=== PATIENT | female | born 1950 | race African-American/Black ===

== ENCOUNTER 2016-09-21 19:40 | Emergency (ER) | payer MEDICARE, MEDICAID ==
[2016-09-21] MEDS ORDERED: Ketorolac Tromethamine 60 MG/2 ML VIAL ONE (20:17)
== END 2016-09-21 20:27 | disposition home or self-care (01) ==
LOC: MADERS 19:40
DX: B02.9 Zoster without complications (principal); I10 Essential (primary) hypertension; Z87.891 Personal history of nicotine dependence; Z79.899 Other long term (current) drug therapy
CPT/HCPCS: 96372; J1885

== ENCOUNTER 2017-02-04 11:19 | Emergency (ER) | payer MEDICAID, MEDICARE | END 2017-02-04 11:50 | disposition home or self-care (01) | LOC: MADERS 11:19 | DX: J01.90 Acute sinusitis, unspecified (principal); I10 Essential (primary) hypertension; Z87.891 Personal history of nicotine dependence; Z79.899 Other long term (current) drug therapy | CPT/HCPCS: 99282 ==

== ENCOUNTER 2017-04-29 14:25 | Emergency (ER) | payer MEDICARE, OTHER ==
[2017-04-29] MEDS ORDERED: HYDROcodone/Acetaminophen 5/325 mg Tablet ONE (16:20)
[2017-04-29] MEDS ORDERED: Benzonatate 100 MG CAP ONE (16:20)
== END 2017-04-29 16:28 | disposition home or self-care (01) ==
LOC: MADERS 14:25
DX: J02.9 Acute pharyngitis, unspecified (principal); I10 Essential (primary) hypertension; Z87.891 Personal history of nicotine dependence
CPT/HCPCS: 99283

== ENCOUNTER 2017-12-03 16:28 | Emergency (ER) | payer MEDICAID, MEDICARE | END 2017-12-03 17:37 | disposition home or self-care (01) | LOC: MADERS 16:28 | DX: J20.9 Acute bronchitis, unspecified (principal); Z87.891 Personal history of nicotine dependence; Z79.899 Other long term (current) drug therapy | CPT/HCPCS: 87804; 99283 ==

== ENCOUNTER 2018-04-12 01:10 | Emergency (ER) | payer MEDICARE, MEDICAID ==
[2018-04-12] MEDS ORDERED: Benzonatate 100 MG CAP ONE (02:00)
== END 2018-04-12 02:11 | disposition home or self-care (01) ==
LOC: MADERS 01:10
DX: J06.9 Acute upper respiratory infection, unspecified (principal); I10 Essential (primary) hypertension; Z87.891 Personal history of nicotine dependence; Z79.899 Other long term (current) drug therapy
CPT/HCPCS: 87804; J7620

== ENCOUNTER 2018-06-16 13:22 | Emergency (ER) | payer MEDICARE, MEDICAID | END 2018-06-16 13:55 | disposition left against medical advice (07) | LOC: MADERS 13:22 | DX: R05 Cough (principal); I10 Essential (primary) hypertension; Z87.891 Personal history of nicotine dependence; Z79.899 Other long term (current) drug therapy; Z79.51 Long term (current) use of inhaled steroids | CPT/HCPCS: 99283 ==

== ENCOUNTER 2018-06-17 11:54 | Emergency (ER) | payer MEDICARE, MEDICAID ==
[2018-06-17 12:52] LABS: #Basophils 0.2 thou/uL (0.0-0.2); #Eosinphils 2.1 thou/uL (0.0-0.7); #Lymphocytes 1.8 thou/uL (1.20-3.40); #Monocytes 0.5 thou/uL (0.11-0.59); #Neutrophils 6.4 thou/uL (1.40-6.50); %Basophils 1.5 % (0.0-1.0); %Eosinophils 19.4 % (0.0-10.0); %Lymphocytes 16.4 % (21.0-51.0); %Monocytes 4.9 % (0.0-10.0); %Neutrophils 57.7 % (42.0-75.0); Hemoglobin 11.1 g/dL (12.0-16.0); Mean Corpuscular HGB CONC 31.2 g/dL (32.0-36.0); Mean Corpuscular Hemoglobin 29.1 pg (27.0-31.0); Mean Corpuscular Volume 93.4 fL (78.0-98.0); Mean Platelet Volume 7.1 fL (7.4-10.4); Platelet Count 273 thou/uL (130-400); RBC Distribution Width 12.8 % (11.5-14.5)
[2018-06-17 13:07] LABS: ALT (SGPT) 12 U/L (8-55); AST (SGOT) 14 U/L (5-34); Albumin 4.1 g/dL (3.4-4.8); Alkaline Phosphatase 125 U/L (40-150); Anion Gap 14 mmol/L (10-20); BUN (Urea Nitrogen) 10 mg/dL (9.8-20.1); Bilirubin, Total 0.5 mg/dL (0.2-1.2); Calc. Creatinine Clearance 0 mL/min (70-130); Calcium 9.6 mg/dL (7.8-10.44); Carbon Dioxide 26 mmol/L (23-31); Chloride 102 mmol/L (98-107); Estimated GFR-MDRD Greater than 90; Globulin 3.1 g/dL (2.4-3.5); Glucose 106 mg/dL (80-115); Protein, Total 7.2 g/dL (6.0-8.3); Sodium 138 mmol/L (136-145)
--- NOTE | 2018-06-17 13:36 | RAD ---
EXAM: Two views chest PROVIDED CLINICAL HISTORY: Cough COMPARISON: 08/03/2005 FINDINGS: The heart is mildly enlarged. The pulmonary vasculature is within normal limits. The lungs appear alonzo ar. No pleural fluid or pneumothorax apparent. Surgical clips overlie the epigastric region. IMPRESSION: 1. Mild cardiomegaly. 2. No acute cardiopulmonary process.
== END 2018-06-17 14:23 | disposition home or self-care (01) ==
LOC: MADERS 11:54
DX: J20.9 Acute bronchitis, unspecified (principal); Z87.891 Personal history of nicotine dependence; I10 Essential (primary) hypertension; Z79.51 Long term (current) use of inhaled steroids; Z79.899 Other long term (current) drug therapy
CPT/HCPCS: 36415; 71046; 80053; 83605; 83880; 85025; 87040; 87804; 93005; 94640; 94760; J7620

== ENCOUNTER 2018-12-08 14:21 | Emergency (ER) | payer MEDICARE, MEDICAID ==
[2018-12-08] MEDS ORDERED: predniSONE 20 MG TAB ONE (14:41)
--- NOTE | 2018-12-08 15:20 | RAD ---
2 VIEWS CHEST: Date: 12/08/18 COMPARISON: 06/17/18. HISTORY: Cough. FINDINGS: Two views of the chest show normal sized cardiomediastinal silhouette. There is no evidence of consol idation, mass, or pleural effusion. The bones are unremarkable. IMPRESSION: No evidence of acute cardiopulmonary disease. POS: [facility]
== END 2018-12-08 16:04 | disposition home or self-care (01) ==
LOC: MADERS 14:21
DX: J20.9 Acute bronchitis, unspecified (principal); I10 Essential (primary) hypertension; Z87.891 Personal history of nicotine dependence; Z79.899 Other long term (current) drug therapy; Z79.51 Long term (current) use of inhaled steroids
CPT/HCPCS: 71046; J7512; J7620

== ENCOUNTER 2019-04-07 18:47 | Emergency (ER) | payer MEDICARE, MEDICAID | END 2019-04-07 20:34 | disposition home or self-care (01) | LOC: MADERS 18:47 | DX: J06.9 Acute upper respiratory infection, unspecified (principal); I10 Essential (primary) hypertension; Z87.891 Personal history of nicotine dependence; Z79.899 Other long term (current) drug therapy | CPT/HCPCS: 99283 ==

== ENCOUNTER 2019-04-11 15:19 | Emergency (ER) | payer MEDICARE, MEDICAID ==
--- NOTE | 2019-04-11 15:58 | RAD ---
EXAM: Chest 2 views: HISTORY: Cough, worsening shortness of breath COMPARISON: 12/08/2018 FINDINGS: Heart size:Within normal limits. Lungs:Clear of acute process. Atherosclerotic changes of the aorta. No confluent pneumonia, overt edema, pleural effusion, pneumothorax, or other significant acute proce ss. IMPRESSION: Atherosclerosis of the aorta. No acute intrathoracic disease.
[2019-04-11] MEDS ORDERED: Dexamethasone 4 MG TAB ONE (16:41)
[2019-04-11] MEDS ORDERED: Benzonatate 100 MG CAP ONE (16:41)
[2019-04-11] MEDS ORDERED: Azithromycin 250 MG TAB ONE (16:41)
== END 2019-04-11 16:50 | disposition home or self-care (01) ==
LOC: MADERS 15:19
DX: J18.9 Pneumonia, unspecified organism (principal); Z79.899 Other long term (current) drug therapy
CPT/HCPCS: 71046; 87804; J8540

== ENCOUNTER 2020-02-05 13:35 | Emergency (ER) | payer MEDICARE, OTHER ==
[2020-02-05] MEDS ORDERED: Ibuprofen 800 MG TAB ONE (14:00)
[2020-02-05] MEDS ORDERED: Dexamethasone 4 MG TAB ONE (14:00)
== END 2020-02-05 14:12 | disposition home or self-care (01) ==
LOC: MADERS 13:35
DX: M25.542 Pain in joints of left hand (principal); J44.9 Chronic obstructive pulmonary disease, unspecified; I10 Essential (primary) hypertension; M19.90 Unspecified osteoarthritis, unspecified site; Z87.891 Personal history of nicotine dependence; Z79.899 Other long term (current) drug therapy; Z79.51 Long term (current) use of inhaled steroids
CPT/HCPCS: 99283; J8540

== ENCOUNTER 2020-08-26 10:51 | Emergency (ER) | payer MEDICARE, MEDICAID | END 2020-08-26 13:42 | disposition home or self-care (01) | LOC: MADERS 10:51 | DX: J20.9 Acute bronchitis, unspecified (principal); J44.0 Chronic obstructive pulmonary disease with (acute) lower respiratory infection; M19.90 Unspecified osteoarthritis, unspecified site; I10 Essential (primary) hypertension; Z87.891 Personal history of nicotine dependence; Z79.899 Other long term (current) drug therapy | CPT/HCPCS: 99284 ==

== ENCOUNTER 2021-03-10 15:55 | Emergency (ER) | payer MEDICARE, MEDICAID ==
[2021-03-10] MEDS ORDERED: Clindamycin 150 MG CAP ONE (16:55)
[2021-03-10] MEDS ORDERED: Calcium Carbonate 500 MG ChewTAB ONE (16:55)
[2021-03-10] MEDS ORDERED: traMADol HCl 50 MG TAB ONE (16:55)
== END 2021-03-10 17:15 | disposition home or self-care (01) ==
LOC: MADERS 15:55
DX: K04.7 Periapical abscess without sinus (principal); I10 Essential (primary) hypertension; J44.9 Chronic obstructive pulmonary disease, unspecified; M19.90 Unspecified osteoarthritis, unspecified site; Z87.891 Personal history of nicotine dependence; Z79.899 Other long term (current) drug therapy
CPT/HCPCS: 99283

== ENCOUNTER 2021-12-31 09:21 | Emergency (ER) | payer MEDICARE, MEDICAID | END 2021-12-31 11:08 | disposition home or self-care (01) | LOC: MADERS 09:21 | DX: J01.90 Acute sinusitis, unspecified (principal); I10 Essential (primary) hypertension; J44.9 Chronic obstructive pulmonary disease, unspecified; Z87.891 Personal history of nicotine dependence | CPT/HCPCS: 99283 ==

== ENCOUNTER 2022-03-13 12:04 | Emergency (ER) | payer MEDICARE, MEDICAID ==
[2022-03-13] MEDS ORDERED: Orphenadrine Citrate 60 MG/2 ML VIAL ONE (13:26)
== END 2022-03-13 13:40 | disposition home or self-care (01) ==
LOC: MADERS 12:04
DX: M25.512 Pain in left shoulder (principal); I10 Essential (primary) hypertension; J44.9 Chronic obstructive pulmonary disease, unspecified; Z79.899 Other long term (current) drug therapy; Z87.891 Personal history of nicotine dependence
CPT/HCPCS: 93005; 96372; J2360

== ENCOUNTER 2022-04-16 09:39 | Emergency (ER) | payer MEDICARE, MEDICAID ==
[2022-04-16] MEDS ORDERED: Sodium Chloride 0.9% 1,000 ML ONE (10:10)
[2022-04-16] MEDS ORDERED: Ondansetron PF 4 MG/2 ML Vial ONE (10:34)
[2022-04-16] MEDS ORDERED: Acetaminophen/Codeine 30-300mg Tablet ONE (11:03)
[2022-04-16 11:06] LABS: #Eosinphils 0.1 thou/uL (0.0-0.7); #Lymphocytes 0.9 thou/uL (1.20-3.40); #Monocytes 0.2 thou/uL (0.11-0.59); #Neutrophils 6.7 thou/uL (1.40-6.50); %Basophils 0.4 % (0.0-1.0); %Eosinophils 0.8 % (0.0-10.0); %Lymphocytes 11.6 % (21.0-51.0); %Monocytes 2.9 % (0.0-10.0); %Neutrophils 84.3 % (42.0-75.0); Hemoglobin 11.2 g/dL (12.0-16.0); Mean Corpuscular HGB CONC 33.1 g/dL (32.0-36.0); Mean Corpuscular Hemoglobin 31.1 pg (27.0-31.0); Mean Corpuscular Volume 93.8 fl (78.0-98.0); Mean Platelet Volume 7.2 fL (7.4-10.4); Platelet Count 209 10x3/uL (130-400); RBC Distribution Width 11.9 % (11.5-14.5); Red Blood Cell (RBC) Count 3.61 mill/uL (4.20-5.40)
[2022-04-16 11:35] LABS: Bilirubin Negative (Negative); Blood, Urine Negative (Negative); Clarity Clear (Clear); Glucose, Urine (Dipstick) Negative (Negative); Ketone, Urine Negative (Negative); Leukocyte Negative (Negative); Nitrite Negative (Negative); Protein, Urine (Dipstick) Negative (Neg-Trace); Specific Gravity, Urine 1.025 (1.005-1.030); Urobilinogen 0.2 mg/dL (Less than 2)
[2022-04-16 12:15] LABS: Potassium 4.9 mmol/L (3.5-5.1); Sodium 140 mmol/L (136-145)
[2022-04-16 12:16] LABS: Alkaline Phosphatase 92 U/L (40-110); BUN (Urea Nitrogen) 15 mg/dL (9.8-20.1); Bilirubin, Total 0.4 mg/dL (0.2-1.2); Calc. Creatinine Clearance 0 mL/min (70-130); Calcium 9.2 mg/dL (7.6-10.4); Carbon Dioxide 22 mmol/L (23-31); Chloride 109 mmol/L (98-107); Estimated GFR 77; Globulin 3.3 g/dL (2.4-3.5); Glucose 159 mg/dL (83-110); Protein, Total 7.3 g/dL (5.8-8.1)
[2022-04-16 12:17] LABS: ALT (SGPT) 16 U/L (8-55); AST (SGOT) 22 U/L (5-34); Anion Gap 14 mmol/L (10-20); Lipase 25 U/L (8-78)
== END 2022-04-16 12:43 | disposition home or self-care (01) ==
LOC: MADERS 09:39
DX: M54.50 Low back pain, unspecified (principal); R11.0 Nausea; I10 Essential (primary) hypertension; J44.9 Chronic obstructive pulmonary disease, unspecified; Z87.891 Personal history of nicotine dependence; Z79.899 Other long term (current) drug therapy
CPT/HCPCS: 36415; 80053; 81003; 83605; 83690; 84484; 85025; 96374; J2405; J7050

== ENCOUNTER 2022-09-21 11:20 | Emergency (ER) | payer MEDICARE, MEDICAID ==
[2022-09-21] MEDS ORDERED: Ipratropium/Albuterol 3 ML NEB ONE (12:02)
== END 2022-09-21 12:26 | disposition home or self-care (01) ==
LOC: MADERS 11:20
DX: J45.901 Unspecified asthma with (acute) exacerbation (principal); J06.9 Acute upper respiratory infection, unspecified; I10 Essential (primary) hypertension; J44.9 Chronic obstructive pulmonary disease, unspecified; Z87.891 Personal history of nicotine dependence; Z79.899 Other long term (current) drug therapy
CPT/HCPCS: 94640; J7620

== ENCOUNTER 2022-11-17 03:09 | Emergency (ER) | payer MEDICARE, MEDICAID ==
[2022-11-17] MEDS ORDERED: HYDROcodone/Acetaminophen 5/325 mg Tablet ONE (03:46)
== END 2022-11-17 04:09 | disposition home or self-care (01) ==
LOC: MADERS 03:09
DX: M79.621 Pain in right upper arm (principal); I10 Essential (primary) hypertension; J44.9 Chronic obstructive pulmonary disease, unspecified; Z87.891 Personal history of nicotine dependence
CPT/HCPCS: 93005

== ENCOUNTER 2023-02-10 00:34 | Emergency (ER) | payer MEDICARE, MEDICAID ==
[2023-02-10] MEDS ORDERED: Lidocaine 1% PF 5 ML VIAL ONE (00:59)
[2023-02-10] MEDS ORDERED: Boostrix 0.5 ML (Tdap) VIAL (>/=7 yrs of age) ONE (01:34)
== END 2023-02-10 01:54 | disposition home or self-care (01) ==
LOC: MADERS 00:34
DX: N76.4 Abscess of vulva (principal); I10 Essential (primary) hypertension; J44.9 Chronic obstructive pulmonary disease, unspecified; Z87.891 Personal history of nicotine dependence; Z23 Encounter for immunization
CPT/HCPCS: 56405; 87070; 87205; 90471; 90715

== ENCOUNTER 2023-02-12 09:46 | Emergency (ER) | payer MEDICARE, MEDICAID | END 2023-02-12 10:08 | disposition home or self-care (01) | LOC: MADERS 09:46 | DX: Z48.00 Encounter for change or removal of nonsurgical wound dressing (principal); J45.909 Unspecified asthma, uncomplicated; I10 Essential (primary) hypertension; Z87.891 Personal history of nicotine dependence; Z79.899 Other long term (current) drug therapy | CPT/HCPCS: 99283 ==

== ENCOUNTER 2023-07-13 17:11 | Emergency (ER) | payer OTHER, MEDICARE, MEDICAID ==
[~2023-07-13 17:11] MED LIST: Iopamidol 370 76% 100 ML VIAL ONE
[2023-07-13] MEDS ORDERED: Ketorolac Tromethamine 30 MG (1 mL) VIAL ONE (17:48)
[2023-07-13 17:54] LABS: INR-International Normal Ratio 1.1; Prothrombin Time 14.2 sec (12.0-14.7)
[2023-07-13 17:55] LABS: PTT 28.3 sec (22.9-36.1)
[2023-07-13 18:01] LABS: Anion Gap 15 mmol/L (10-20); BUN (Urea Nitrogen) 20 mg/dL (9.8-20.1); Calc. Creatinine Clearance 0 mL/min (70-130); Calcium 9.1 mg/dL (7.8-10.44); Carbon Dioxide 22 mmol/L (23-31); Chloride 106 mmol/L (98-107); Estimated GFR 61; Glucose 147 mg/dL (83-110); Potassium 3.5 mmol/L (3.5-5.1); Sodium 139 mmol/L (136-145)
[2023-07-13 18:16] LABS: Hematocrit 33.8 % (36.0-47.0); Hemoglobin 10.1 g/dL (12.0-16.0); Mean Corpuscular HGB CONC 29.8 g/dL (32.0-36.0); Mean Corpuscular Hemoglobin 29.2 pg (27.0-31.0); Platelet Count 219 10x3/uL (130-400); RBC Distribution Width 12.5 % (11.5-14.5); Red Blood Cell (RBC) Count 3.45 mill/uL (4.20-5.40)
[2023-07-13 18:17] LABS: Band 2 % (5-11); Eosinophils 4 % (0-10); Lymphocytes 9 % (21-51); MDiff Complete? YES; Manual Diff?? YES; Monocytes 11 % (0-10); Neutrophil 64 % (42-75)
[2023-07-13 18:18] LABS: Platelet Adequacy Comment Appears Adequate; Reactive Lymphocytes 10 % (0-10)
== END 2023-07-13 19:33 | disposition home or self-care (01) ==
LOC: MADERS 17:11
DX: S33.5XXA Sprain of ligaments of lumbar spine, initial encounter (principal); I10 Essential (primary) hypertension; Z87.891 Personal history of nicotine dependence; V49.88XA Car occupant (driver) (passenger) injured in other specified transport accidents, initial encounter
CPT/HCPCS: 36415; 70450; 71260; 72125; 74177; 80048; 85025; 85610; 85730; 96374; J1885; Q9967

== ENCOUNTER 2024-02-01 16:13 | Emergency (ER) | payer MEDICARE, MEDICAID ==
[2024-02-01] MEDS ORDERED: Guaifenesin DM 100-10/5 ML UDCUP ONE (17:08)
== END 2024-02-01 17:15 | disposition home or self-care (01) ==
LOC: MADERS 16:13
DX: R05.9 Cough, unspecified (principal); I10 Essential (primary) hypertension; J45.909 Unspecified asthma, uncomplicated; J44.9 Chronic obstructive pulmonary disease, unspecified; Z87.891 Personal history of nicotine dependence; Z79.899 Other long term (current) drug therapy
CPT/HCPCS: 99283

== ENCOUNTER 2024-03-25 10:51 | Emergency (ER) | payer OTHER, MEDICAID ==
[2024-03-25] MEDS ORDERED: Lidocaine 1% PF 5 ML VIAL ONE (11:08)
== END 2024-03-25 12:30 | disposition home or self-care (01) ==
LOC: MADERS 10:51
DX: S16.1XXA Strain of muscle, fascia and tendon at neck level, initial encounter (principal); S39.012A Strain of muscle, fascia and tendon of lower back, initial encounter; I10 Essential (primary) hypertension; J44.9 Chronic obstructive pulmonary disease, unspecified; Z87.891 Personal history of nicotine dependence; V43.52XA Car driver injured in collision with other type car in traffic accident, initial encounter; Y93.89 Activity, other specified; Y92.410 Unspecified street and highway as the place of occurrence of the external cause
CPT/HCPCS: 72125; 94760